=== PATIENT | male | born 1975 | race Caucasian/White ===

== ENCOUNTER 2017-10-22 08:22 | Day surgery (SDC) | payer OTHER, SELFPAY ==
[2017-10-22] VITALS (8 sets, daily range): BP systolic 111–130; BP diastolic 56–78; PULSE 63–82; RESP 16–18; TEMP 36.5–36.8; O2SAT 96–99; BMI 28.3
[2017-10-22] MEDS: Ketorolac 30 MG/ML Syringe IV (06:58)
--- NOTE | 2017-10-22 09:32 | OP.PCM_ITS ---
Report of Operation Date of Procedure: 10/22/17 Pre-Operative Diagnosis: 1. Right knee medial meniscus tear. 2. Right knee chondromalacia Post-Operative Diagnosis: 1. Right knee medial meniscus tear. 2. Right knee chondromalacia Surgery/Procedure Performed:: 1. Right knee arthroscopic partial medial meniscectomy. 2. Right knee arthroscopic chondroplasty Description of Surgical Findings:: Large posterior horn complex meniscus tear medial meniscus, grade 3 chondral changes medial compartment grade 4 chondral changes patellofemoral compartment smokehouse operator: None Type of Anesthesia:: General Anesthesiologist: Medardo Agudelo Special Medications: Ancef Specimen's removed: None Estimated Blood Loss (mL): 3 Fluids Replaced: 1000 milliliters crystalloid Description of Procedure: On the date of the procedure, the patient's R lower extremity was marked in the preoperative area. Patient was brought back to the operating room where they were transferred to the bed. Anesthesia assumed control of the C-spine airway and administered anesthetic. All bony prominences were identified and well- padded and the R leg was placed in the arthroscopic leg santos. The contralateral leg was then draped over the bed and well-padded. There was padding underneath both sciatic nerves. The foot of the bed was then dropped and the R leg was prepped in a sterile fashion. The surgeon then scrubbed. Upon reentering the room, the operative leg was draped in a standard orthopedic fashion. A timeout was called, everyone agreed upon the side, the site, the procedure to be performed, patient's identity and antibiotics given. Incisions were marked out for the medial and lateral infrapatellar portals. Esmarch bandage was then used to exsanguinate the leg and tourniquet was placed at 250 mmHg. At this time, the lateral portal incision was made in a vertical fashion. The trocar was placed into the joint. The camera was then placed and the patellofemoral joint was visualized. The patella did appear to have grade 3 -4 chondral changes. The trochlea appeared to have grade 2 chondral changes. We then directed our attention to the medial gutter where there was no foreign body. Then directed our attention to the medial joint compartment. There were grade 3 chondral changes on the medial distal femur, grade 3 chondral changes on the medial tibial plateau. The medial meniscus had a complex posterior horn tear. The medial portal was then placed under direct visualization using a spinal needle an 11 blade scalpel. Once this was done a probe was placed in the joint and the meniscus was probed finding confirmation of the large posterior horn tear. The biters and kendrick were then used sequentially to debriding get rid of any free edges that could be a source of pain and catching in the meniscus tear. Once we felt medial meniscus tear was adequately debrided , we again visualized the joint and noted the meniscus tear was adequately debrided. We also debrided any free edges of the cartilage with the shaver performing the medial compartment chondroplasty Attention was then turned towards the notch where the anterior cruciate ligament was intact. PCL was visualized and appeared intact. Attention was then directed towards the lateral compartment where the lateral distal femur had minimal chondral changes, the lateral proximal tibia had minimal chondral changes. The lateral meniscus had no tears. We then directed our attention to the lateral gutter, which was visualized and no free bodies were noted. We then directed our attention back to the patellofemoral compartment where the free chondral edges were debrided using a shaver performing a chondroplasty of the patellofemoral compartment. At this time the wound was copiously irrigated out with normal saline with epinephrine. The wound was closed with 4-0 nylon and 0.5% Marcaine and epinephrine were injected for local anesthetic. Xeroform was placed over the incision. Sterile dressing was placed. Compressive dressing was placed. Tourniquet was let down. For that there was then placed up. Patient was awakened by anesthesia patient was transferred to the PACU for recovery in stable condition. Postoperative plan: Patient will be made weight-bear as tolerated. Return to activities as tolerated. He will come to the office in 2 weeks for postoperative wound check and suture removal. If he is doing well that time he can follow-up as needed. Grafts/Implants Used: NONE - Complications none - Admit VTE Documentation VTE Present on Admission: No VTE Mechan Device Prophylaxis: SCD's VTE Pharm Prophylaxis ordered?: Yes
[2017-10-22] MEDS: Cefazolin 2 GM in 0.9% Normal Saline 100 ML IV (11:12)
[2017-10-22] MEDS: Bupiv/Epi 0.5% Mpf 30 ML Vial (11:54)
[2017-10-22] MEDS: oxyCODONE 5 MG Tablet PO (13:33)
== END 2017-10-22 13:54 | disposition home or self-care (01) ==
LOC: SDC 08:25 → AC 08:25
PROVIDERS: Family Provider Family Medicine; PCP Family Medicine; Visit Provider Specialist
PROC: (CPT 29870; principal; 2017-10-22 10:10)
DX: M94.261 Chondromalacia, right knee (principal); Z85.828 Personal history of other malignant neoplasm of skin; S83.231A Complex tear of medial meniscus, current injury, right knee, initial encounter
CPT/HCPCS: 29881; J7120